=== PATIENT | male | born 1970 | race Caucasian/White ===

== ENCOUNTER 2023-09-01 08:41 | Outpatient (CLI) | payer BC, SELFPAY ==
[2023-09-01 19:28] LABS: Basophils # 0.1 K/mm3 (0-0.2); Basophils % 1.2 % (0.1-2.0); Eosinophils % 0.7 % (0.1-12.0); Hematocrit 51.8 % (42.0-52.0); Hemoglobin 17.7 g/dL (14.1-18.0); Lymphocytes # 1.3 K/mm3 (0.7-4.5); Lymphocytes % 28.4 % (10-50); Mean Corpuscular HGB Conc 34.1 g/dL (31.8-35.4); Mean Corpuscular Hemoglobin 33.1 pg (27.0-31.2); Mean Corpuscular Volume 97.2 fl (80-94); Mean Platelet Volume 9.9 fl (7.4-10.4); Monocytes # 0.4 K/mm3 (0.1-1.0); Monocytes % 8.7 % (1.7-9.3); Neutrophils # 2.7 K/mm3 (1.8-7.8); Platelet Count 225 K/mm3 (142-424); Red Blood Count 5.34 M/mm3 (4.60-6.20); Red Cell Distribution Width 13.3 % (11.5-17.5); White Blood Count 4.5 K/mm3 (4.8-10.8)
[2023-09-01 19:41] LABS: Alanine Aminotransferase 86 U/L (12-78); Albumin Level 4.2 g/dl (3.5-5.0); Albumin/Globulin Ratio 1.4 (1.1-1.8); Alkaline Phosphatase 80 U/L (38-126); Anion Gap 12.8 mEq/L (5-15); Aspartate Amino Transferase 92 U/L (17-59); Bilirubin,Total 0.9 mg/dl (0.2-1.3); Blood Urea Nitrogen 13 mg/dl (9-20); Calcium 8.3 mg/dl (8.4-10.2); Carbon Dioxide 23 mmol/L (22.0-30.0); Chloride 103 mmol/L (98-107); Cholesterol 187 mg/dl (140-200); Estimated Glomerular Filt Rate 101 ml/min (>60); GFR (African American) 122 ML/MIN (>60); Glucose 98 mg/dl (74-100); HDL Cholesterol 31 mg/dl (40-60); Potassium 3.8 mmoL/L (3.5-5.1); Sodium 135 mmol/L (136-145); Total Protein,Serum 7.2 g/dl (6.3-8.2); Triglycerides 177 mg/dl (30-150); VLDL Cholesterol 35 mg/dL (0-40)
[2023-09-01 20:10] LABS: 25-OH Vitamin D, Total < 12.8 ng/mL (30-100)
[2023-09-01 20:13] LABS: Prostate Specific Ag Screen 3.1 ng/ml (0.0-4.0); Thyroid Stimulating Hormone 1.42 uIU/mL (0.465-4.68)
[2023-09-01 20:20] LABS: Direct LDL Cholesterol 118.77 mg/dL (100-129)
[2023-09-01 20:45] LABS: Creatinine,Urine Random 160 mg/dL (Not Estab.)
[2023-09-01 20:47] LABS: Microalbumin/Creatinine Ratio 4.9
== END 2023-09-01 23:59 ==
LOC: LAB.DROPOF 09-02 08:42
PROVIDERS: PCP Internal Medicine; Visit Provider Internal Medicine
DX: E55.9 Vitamin D deficiency, unspecified (principal); I10 Essential (primary) hypertension; M19.112 Post-traumatic osteoarthritis, left shoulder; S46.002S Unspecified injury of muscle(s) and tendon(s) of the rotator cuff of left shoulder, sequela; M17.0 Bilateral primary osteoarthritis of knee; M54.50 Low back pain, unspecified; M25.572 Pain in left ankle and joints of left foot; Z68.31 Body mass index [BMI] 31.0-31.9, adult; Z79.899 Other long term (current) drug therapy
CPT/HCPCS: 80053; 80061; 82043; 82306; 82570; 84443; 85025; G0103